=== PATIENT | female | born 2005 | race Caucasian/White ===

== ENCOUNTER → 2024-05-06 14:11 | Outpatient (CLI) | payer OTHER, SELFPAY ==
--- NOTE | 2024-05-06 14:18 | DI.MRI.S_ITS ---
PROCEDURE: MR KNEE LT WO CON INDICATIONS: PAIN IN LEFT KNEE TECHNIQUE: Noncontrast sagittal PD fast spin echo and T2 fast spin echo with fat saturation, sagittal 3-D FLASH with fat saturation; coronal T1 spin echo and PD fast spin echo with fat saturation, and axial PD fast spin echo with fat saturation through the knee. COMPARISON: None. FINDINGS: Image quality: Excellent. Menisci: In the medial meniscus, there is mild intrasubstance degeneration in the posterior horn and the meniscus body. No tear of the medial meniscus. The lateral meniscus is unremarkable. Cruciate ligaments: The anterior and posterior cruciate ligaments appear intact. Medial structures: The medial collateral ligament appears intact. The posterior oblique ligament, semimembranosus tendon insertions, oblique popliteal ligament, and meniscocapsular junction appear intact. Visualized portions of the pes anserinus tendons appear normal. No abnormal bursal fluid. Lateral structures: The lateral collateral ligament, long and short heads of the biceps femoris tendon appear intact. The popliteus tendon appears normal; the popliteofibular ligament appears intact. The posterosuperior and anteroinferior popliteomeniscal fascicles appear intact. The arcuate and fabellofibular ligaments appear intact, on either side of the lateral inferior geniculate artery. Iliotibial band appears normal. Anterior structures: The quadriceps and patellar tendons appear intact. Patellar alignment is normal. No femoral trochlear dysplasia or ventral trochlear prominence. No edema in the infrapatellar fat pad. Bones and cartilage: Small area of chondral delamination in the medial patellar facet (series 5, image 13). Cartilage of the trochlea is unremarkable. In the medial compartment, the cartilage is grossly well maintained. In the lateral compartment, the cartilage is grossly well maintained as well. No acute fracture. Joint space: Trace knee effusion. No popliteal cyst. Popliteal vasculature is unremarkable. IMPRESSION: 1. 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 2. 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 Dictated by: Jacy Burgos M.D. on 05/07/2024 at 21:42 Approved by: Jacy Burgos M.D. on 05/07/2024 at 21:52
== END ==
LOC: MRI 14:15
PROVIDERS: PCP Nurse Practitioner Family; Referring Provider Nurse Practitioner Family; Visit Provider Nurse Practitioner Family
DX: M17.12 Unilateral primary osteoarthritis, left knee (principal); M25.562 Pain in left knee
CPT/HCPCS: 73721